=== PATIENT | female | born 1980 | race African-American/Black ===

== ENCOUNTER 2016-11-17 13:21 | Emergency (ER) | payer SELFPAY ==
[2016-11-17 16:55] VITALS: BP 101/59
[2016-11-17] MEDS ORDERED: Ibuprofen TAB* 600 MG PO ONE (17:20)
--- NOTE | 2016-11-17 18:05 | RAD ---
Indication: Right lower neck pain CT of the cervical spine was obtained in the axial plane. Sagittal and coronal constructed images were obtained. The skull base demonstrates no evidence of fracture. Mastoid air cells are well aerated. The C1 ring is intact. The vertebral bodies appear normal in height. The atlantoaxial joint is otherwise unremarkable. No evidence of fracture of the cervical spine is noted. No evidence of central or foraminal stenosis is noted. Spinal canal appears to be grossly intact. Paraspinous processes are unremarkable. There is some straightening of the normal lordosis. IMPRESSION: NO FRACTURE OF THE CERVICAL SPINE IS PRESENT.
--- NOTE | 2016-11-17 18:06 | RAD ---
Indication: Right shoulder injury. 3 views of the right shoulder demonstrates no fracture. No other bone or joint abnormality is identified. IMPRESSION: No fracture of the right shoulder is present.
--- NOTE | 2016-11-17 19:51 | UC ---
Mario Metzger SooYoung, scribed for Eduardo Hart MD on 11/17/16 at 1722 . Upper Extremity HPI - HPI Summary HPI Summary: A 36 y/o F presents to [facility] with R shoulder pain onset yesterday, with pain radiating from her neck down her shoulder. Pt was trying to move a pt at her workplace, and she noticed immediately that something felt wrong. Associated sx : mild numbness, RUE weakness, mild R wrist pain. Denies R hand pain. She went to work today, and was mostly using her LUE, but they sent her to [facility] to be evaluated when they found out she hurt her arm. 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 - History of Current Complaint Chief Complaint: UCUpperExtremity Stated Complaint: RT ARM INJURY Time Seen by Provider: 11/17/16 17:13 Hx Obtained From: Patient Hx Last Menstrual Period: 10/28 Onset/Duration: Sudden Onset, Lasting Days - yesterday, Still Present Severity Initially: Moderate Severity Currently: Moderate Pain Intensity: 9 Pain Scale Used: 0-10 Numeric Location Of Pain: Is Discrete @ - RUE/shoulder Character: Sharp Aggravating Factor(s): Movement Alleviating Factor(s): OTC Meds Associated Signs And Symptoms: Positive: Weakness, Numbness/Tingling Related History: Occupational Injury - Allergies/Home Medications Allergies/Adverse Reactions: Allergies Allergy/AdvReac Type Severity Reaction Status Date / Time ENVIRONMENTAL/SEASONAL Allergy STUFFINESS, Uncoded 06/08/15 19:38 HAYFEVER SNEEZING Home Medications: Home Medications Ibuprofen [Advil] 400 mg PO 11/17/16 [History] PMH/Surg Hx/FS Hx/Imm Hx Previously Healthy: No - ANEMIA Respiratory History: Asthma - Surgical History Surgical History: Yes Surgery Procedure, Year, and Place: umbilical hernia repair 04/2013 - Family History Known Family History: Positive: Other Family History: pos: anaesthesia reaction - sister - Social History Occupation: Employed Full-time Lives: With Family Alcohol Use: None Substance Use Type: None Smoking Status (MU): Never Smoked Tobacco - Immunization History Most Recent Influenza Vaccination: 03/31/15 Most Recent Tetanus Shot: 03/31/15 Most Recent Pneumonia Vaccination: none Review of Systems Constitutional: Negative Musculoskeletal: Arthralgia - R shoulder; mild R wrist, Decreased ROM - R shoulder, Other: - neg: R hand pain Neurological: Weakness - RUE, Numbness - RUE All Other Systems Reviewed And Are Negative: Yes Physical Exam Triage Information Reviewed: Yes Appearance: Well-Appearing, No Pain Distress Vital Signs: Initial Vital Signs Temp 98.5 F 11/17/16 16:50 Pulse 46 11/17/16 16:50 Resp 18 11/17/16 16:50 BP 101/59 11/17/16 16:50 Pulse Ox 99 11/17/16 16:50 Vital Signs Reviewed: Yes Eye Exam: Normal - EOMI, MIMA ENT Exam: Normal Neck: Positive: Supple, Nontender, Other: - GOOD ROM OF NECK Respiratory: Positive: Lungs clear, Normal breath sounds Cardiovascular: Positive: RRR Abdomen Description: Positive: Nontender, Soft Musculoskeletal Exam: Other - Mild to moderate pain with movement of R shoulder , decreased ROM of R shoulder joint, no sensation deficit, elbow and wrist are nontender and nml appearing Neurological Exam: Normal - A&Ox3 Psychological Exam: Normal - Affect/Mood Appropriate Skin Exam: Normal - warm, dry, color reflects adequate perfusion Diagnostics - Radiology c-SPINE CT Xray Interpretation: No Acute Changes - IMPRESSION: NO FRACTURE OF THE CERVICAL SPINE IS PRESENT. Radiology Interpretation Completed By: Radiologist SHOULDER Xray Interpretation: No Acute Changes - IMPRESSION: No fracture of the right shoulder is present. 1 of 1 Radiology Interpretation Completed By: Radiologist Re-Evaluation - Re-Evaluation 1 Re-Evaluation Time: 18:21 Change: Unchanged Comment: Discussing imaging results with pt. Upper Extremity Course/Dx - Course Course Of Treatment: Pt medications reviewed this visit. Normal BP reading and no follow-up instructions required. INJURY OCCURRED AT WORK 11/16/16. NO USE OF RIGHT ARM UNTIL CLEARED BY MEDICAL PROVIDER. - Differential Dx/Diagnosis Provider Diagnoses: CERVICAL STRAIN WITH RIGHT SIDED RADICULOPATHY AND RIGHT SHOULDER STRAIN Discharge - Discharge Plan Condition: Stable Disposition: HOME Prescriptions: traMADol TAB* [Ultram*] 50 mg PO Q6HR PRN #20 tab MDD 4 PRN Reason: Pain Patient Education Materials: Shoulder Sprain (ED), Cervical Radiculopathy (ED) , Acute Neck Pain (ED) Forms: *Work Release Referrals: Kenny Cheng MD [Primary Care Provider] - Additional Instructions: FOLLOW UP WITH YOUR DOCTOR. GET RECHECKED FOR ANY WORSENING OF YOUR CONDITION; WEAKNESS, NUMBNESS, PAIN OR QUESTIONS OR CONCERNS. The documentation as recorded by the Mario hale SooYoung accurately reflects the service I personally performed and the decisions made by me, Eduardo Hart MD.
== END 2016-11-17 18:33 | disposition home or self-care (01) ==
LOC: UCEAST 13:21
DX: S16.1XXA Strain of muscle, fascia and tendon at neck level, initial encounter (principal); M54.12 Radiculopathy, cervical region; S43.401A Unspecified sprain of right shoulder joint, initial encounter; X50.0XXA Overexertion from strenuous movement or load, initial encounter; Y93.F9 Activity, other caregiving; Y92.9 Unspecified place or not applicable; Y99.0 Civilian activity done for income or pay
CPT/HCPCS: 72125; 99213; A9270-GY; G0463

== ENCOUNTER → 2017-01-20 13:41 | Emergency (ER) | payer SELFPAY ==
[2017-01-20 15:37] VITALS: BP 104/63
--- NOTE | 2017-01-20 17:19 | ED ---
Willard Metzger Nikita, scribed for DonnyJosesito MD on 01/20/17 at 1452 . Abdominal Pain/Female - HPI Summary HPI Summary: Ms. Hines presented C/O mid abdominal pain for a few days. No N/V/D. She has a history of abdominal wall hernia but it normally doesn't bother her. - History of Current Complaint Chief Complaint: EDAbdPain Stated Complaint: PAIN ABOVE NAVEL Time Seen by Provider: 01/20/17 14:41 Hx Obtained From: Patient Hx Last Menstrual Period: 10/28 Onset/Duration: Sudden Onset - after 1 year ago, Lasting Weeks - since 1 year ago, worsened since 1 week ago, Worse Since - 1 week ago Timing: Constant Severity Initially: Severe Severity Currently: Severe Pain Intensity: 10 Pain Scale Used: 0-10 Numeric Location: Umbilical Radiates: No Character: Sharp, Cramping Aggravating Factor(s): Nothing Alleviating Factor(s): Medications - Ibuprofen upon arrival to ED Associated Signs and Symptoms: Positive: Other: - Protruding umbilical region. Allergies/Adverse Reactions: Allergies Allergy/AdvReac Type Severity Reaction Status Date / Time ENVIRONMENTAL/SEASONAL Allergy STUFFINESS, Uncoded 01/20/17 14:02 HAYFEVER SNEEZING PMH/Surg Hx/FS Hx/Imm Hx Endocrine/Hematology History: Reports: Hx Anemia Denies: Hx Diabetes, Hx Thyroid Disease Cardiovascular History: Denies: Hx Hypertension Respiratory History: Reports: Hx Asthma - rescue inhaler Denies: Hx Chronic Obstructive Pulmonary Disease (COPD) GI History: Denies: Hx Ulcer Sensory History: Denies: Hx Contacts or Glasses, Hx Hearing Aid Opthamlomology History: Denies: Hx Contacts or Glasses - Surgical History Surgery Procedure, Year, and Place: umbilical hernia repair 04/2013 Infectious Disease History: No Infectious Disease History: Denies: Hx Clostridium Difficile, Hx Hepatitis, Hx Human Immunodeficiency Virus (HIV), Hx of Known/Suspected MRSA, Hx Shingles, Hx Tuberculosis, Hx Known/ Suspected VRE, Hx Known/Suspected VRSA, History Other Infectious Disease, Traveled Outside the [place] in Last 30 Days - Family History Known Family History: Negative: Cardiac Disease, Hypertension, Diabetes Family History: pos: anaesthesia reaction - sister - Social History Alcohol Use: None Substance Use Type: Reports: None Smoking Status (MU): Never Smoked Tobacco Review of Systems Negative: Fever Positive: Abdominal Pain - Umbilical region is protruding, has sharp, cramping pain All Other Systems Reviewed And Are Negative: Yes Physical Exam Triage Information Reviewed: Yes Vital Signs On Initial Exam: Initial Vitals BP 116/67 01/20/17 13:55 Vital Signs Reviewed: Yes Appearance: Positive: Well-Appearing, No Pain Distress Skin: Positive: Warm, Skin Color Reflects Adequate Perfusion, Dry Head/Face: Positive: Normal Head/Face Inspection Eyes: Positive: Normal ENT: Positive: Normal ENT inspection Neck: Positive: Supple, Nontender Respiratory/Lung Sounds: Positive: Clear to Auscultation, Breath Sounds Present Cardiovascular: Positive: RRR Abdomen Description: Positive: Soft, Hernia @ - supra umbilical, reduced easily Bowel Sounds: Positive: Present Musculoskeletal: Positive: Normal Neurological: Positive: Normal, Sensory/Motor Intact, Alert, Oriented to Person Place, Time, CN Intact II-III Psychiatric: Positive: Affect/Mood Appropriate - Meigs Coma Scale Coma Scale Total: 15 Diagnostics - Vital Signs Vital Signs Temp Pulse Resp BP Pulse Ox 01/20/17 13:58 99.0 F 76 14 /67 98 01/20/17 13:57 76 98 01/20/17 13:55 - Laboratory Lab Statement: Any lab studies that have been ordered have been reviewed, and results considered in the medical decision making process. Re-Evaluation - Re-Evaluation First Eval Re-Evaluation Time: 15:18 Comment: Discussed with pt about discharge plan. Pt agrees to follow up with Dr. Baum. Abdominal Pain Fem Course/Dx - Course Course Of Treatment: Ms. Hines presented with an abdominal wall hernia whigh reduced easily and gave her relief of her pain. She will F/U with Dr. Baum. - Diagnoses Provider Diagnoses: Hernia - Provider Notifications Discussed Care Of Patient With: Eugenia Feldman Time Discussed With Above Provider: 15:14 Instructed by Provider To: Other - Discussed with Dr. Feldman who agrees that they follow up with the pt. Discharge - Discharge Plan Condition: Stable Disposition: HOME Patient Education Materials: Umbilical Hernia (ED) Referrals: Spike Baum MD [Medical Doctor] - () The documentation as recorded by the Willard hale Nikita accurately reflects the service I personally performed and the decisions made by , Josesito Hines MD.
== END | disposition home or self-care (01) ==
LOC: ED 13:41
DX: K46.9 Unspecified abdominal hernia without obstruction or gangrene (principal); R10.9 Unspecified abdominal pain
CPT/HCPCS: 99282

== ENCOUNTER 2018-06-20 09:30 | Emergency (ER) | payer MEDICAID, OTHER ==
--- NOTE | 2018-06-20 10:58 | UC ---
Lower Extremity/Ankle HPI - HPI Summary HPI Summary: 38 you with left ankle, foot injury fall from stairs and twisting ankle. Pain over the foot and with ambulation. Occurred last night. VSS. - History of Current Complaint Chief Complaint: UCLowerExtremity Stated Complaint: FOOT INJURY Time Seen by Provider: 06/20/18 10:48 Hx Last Menstrual Period: 06/14/18 Pain Intensity: 10 - Allergies/Home Medications Allergies/Adverse Reactions: Allergies Allergy/AdvReac Type Severity Reaction Status Date / Time ENVIRONMENTAL/SEASONAL Allergy STUFFINESS, Uncoded 06/20/18 09:44 HAYFEVER SNEEZING Home Medications: Home Medications NK [No Home Medications Reported] 06/20/18 [History Confirmed 06/20/18] PMH/Surg Hx/FS Hx/Imm Hx - Additional Past Medical History Additional PMH: hx of hernia repair. 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 Alcohol Use: None Substance Use Type: None Smoking Status (MU): Never Smoked Tobacco - Immunization History Most Recent Influenza Vaccination: 03/31/15 Most Recent Tetanus Shot: 03/31/15 Most Recent Pneumonia Vaccination: none Review of Systems All Other Systems Reviewed And Are Negative: Yes Constitutional: Positive: Negative Skin: Positive: Negative Eyes: Positive: Negative ENT: Positive: Negative Respiratory: Positive: Negative Cardiovascular: Positive: Negative Gastrointestinal: Positive: Negative Genitourinary: Positive: Negative Motor: Positive: Negative Neurovascular: Positive: Negative Musculoskeletal: Positive: Edema, Other: - pain over dorsum of left foot Neurological: Positive: Negative Psychological: Positive: Negative Physical Exam - Summary Physical Exam Summary: Appearance: The patient is well-appearing, is in no pain or distress, and is well-nourished. Eyes: Conjunctiva are clear. Pupils are equal and reactive to light and accommodation. Extra ocular muscle movement is intact. ENT: The hearing is grossly normal, the pharynx is normal, and the TMs are normal. There is no muffled or hoarse voice. No stridor. Neck: The neck is supple and there is no lymphadenopathy. Respiratory: The chest is nontender to palpation and without crepitus. The lungs are clear, there are normal breath sounds, and there is no respiratory distress. No wheezes, rales or rhonchi. Cardiovascular: Heart sounds reveal a regular rate and rhythm. There are no clicks, rubs or murmurs. There are no carotid bruits or thrills. Circulation is grossly intact. Abdomen: The abdomen is soft and nontender. There is no organomegaly. Bowel sounds are present and within normal limits. No point tenderness at McBurneys point. Musculoskeletal: Strength is intact. The patient moves all extremities. Pain over the dorsum of the left foot and inferior at the lateral malleous. Achilles appears intact. No 5th MT discomfort. Neurological: The patient is alert. Motor and sensory are examination grossly intact. Speech is normal. Psychological: The patient displays age appropriate behavior Skin: Negative for rashes. Triage Information Reviewed: Yes Vital Signs: Initial Vital Signs Temp 98.2 F 06/20/18 09:41 Pulse 83 06/20/18 09:41 Resp 16 06/20/18 09:41 BP 105/70 06/20/18 09:41 Pulse Ox 100 06/20/18 09:41 Lower Extremity Course/Dx - Course Course Of Treatment: 38-year-old female who suffered an inversion injury to the left foot and ankle last night. She cannot bear weight. X-ray shows a avulsion fracture on the dorsum of the navicular. Examination also shows tenderness over the ligaments at the lateral malleolus of the left ankle. My diagnosis is an evulsion fracture of the left navicular bone of the foot, and first degree ankle sprain of the left foot. Patient is referred to Dr. Garcias's office and will be seen tomorrow at 3:30. She will be given an cooper and crutches. - Differential Dx/Diagnosis Differential Diagnosis/HQI/PQRI: Fracture (Closed), Sprain Provider Diagnosis: Navicular fracture, foot, Left ankle sprain Discharge - Sign-Out/Discharge Documenting (check all that apply): Patient Departure All imaging exams completed and their final reports reviewed: Yes - Discharge Plan Condition: Stable Disposition: HOME Patient Education Materials: Ankle Sprain (DC), Foot Fracture in Adults (ED) Forms: *Work Release Referrals: Kenny Cheng MD [Primary Care Provider] - Additional Instructions: WE DISCUSSED: PLEASE SEEK CARE AT THE EMERGENCY DEPARTMENT IF SYMPTOMS WORSEN OR IF NEW SYMPTOMS DEVELOP. FOLLOW UP WITH YOUR PRIMARY CARE PHYSICIAN IF CONDITION CONTINUES BEYOND 3 DAYS WITHOUT IMPROVEMENT. YOUR DIAGNOSIS IS: small bone fracture (navicular) of your left foot; also ankle sprain. YOUR PRESCRIPTION RECOMMENDATION IS: see below; ibuprofen and acetaminophen OTHER INSTRUCTIONS: use cooper and crutches; elevate; ice. Be seen tomorrow at 3 [address] Painting. Work note:off until June 24, 2018. For pain: Ibuprofen (Motrin and other brand names) 400-600mg PLUS acetaminophen (Tylenol and other brand names) 500mg - 1000mg every 8 hours. Maximum is 3 doses a day. If this dosage is required for more than 5 days, you should re-check with your doctor. The combination of these two over-the- counter medications can be more effective than each one taken alone. Please check with the pharmacist if you have questions about your allergies to these medications. To help you sleep: If you feel as if you want to calm down and get sleepy, over the counter diphenhydramine (Benadryl and other brand names), 25 mg up to every 8 hours may be useful. Please check with the pharmacist if you have questions about your allergies to these medications. - Billing Disposition and Condition Condition: STABLE Disposition: Home
[2018-06-20] MEDS ORDERED: Ibuprofen TAB* 600 MG PO ONE (11:17)
[2018-06-20 12:08] VITALS: BP 97/64
== END 2018-06-20 12:06 | disposition home or self-care (01) ==
LOC: UCEAST 09:30
DX: S92.252A Displaced fracture of navicular [scaphoid] of left foot, initial encounter for closed fracture (principal); S93.492A Sprain of other ligament of left ankle, initial encounter; Z91.09 Other allergy status, other than to drugs and biological substances; W10.9XXA Fall (on) (from) unspecified stairs and steps, initial encounter; Y92.9 Unspecified place or not applicable
CPT/HCPCS: 99213; A9270-GY; G0463

== ENCOUNTER 2019-06-29 14:38 | Emergency (ER) | payer OTHER ==
--- OUTSIDE RECORDS SUMMARY | 2019-06-29 14:44 | XMS REPORT | Continuity of Care Document ---
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 Onset: 04/05/2011 Hyperlipidemia Kenny Cheng M.D. Onset: 11/30/2010 Social History Type Date Description Comments Sex Unknown Tobacco Use Start: Unknown Never Smoked Cigarettes ETOH Use Denies alcohol use Tobacco Use Start: Unknown Patient has never smoked Smoking Status Reviewed: 06/25/19 Patient has never smoked Exercise Type/Frequency Exercises regularly Allergies, Adverse Reactions, Alerts Description No Known Drug Allergies Medications Active Medications SIG Qnty Indications Ordering Provider Date Oseltamivir Phosphate take 1 cap by 14caps R05 Tina Mittal, 06/25/2019 mouth twice MD 75mg Capsules daily for 7 days Gummi Bear 1 po qd Unknown Multivitamin/Mineral Chewtabs Alison Allergy 1 by mouth Unknown 180mg every day Tablets History Medications Oseltamivir Phosphate take 1 cap by 7caps R05 Tina Mittal, 06/05/2019 - mouth daily for MD 06/11/2019 75mg Capsules 7 days Immunizations CPT Code Status Date Vaccine Lot # [id number] Given 04/05/2011 Influenza Virus 3Yrs & Over [id number] Vital Signs Date Vital Result Comment 06/25/2019 2:56pm Height 65 inches 5'5" Weight 135.50 lb Heart Rate 74 /min BP Systolic 100 mmHg BP Diastolic 64 mmHg Body Temperature 99.3 F O2 % BldC Oximetry 98 % BMI (Body Mass Index) 22.5 kg/m2 06/05/2019 9:53am Height 65 inches 5'5" Weight 130.00 lb Heart Rate 88 /min BP Systolic Sitting 102 mmHg BP Diastolic Sitting 61 mmHg Body Temperature 99.4 F O2 % BldC Oximetry 99 % BMI (Body Mass Index) 21.6 kg/m2 Results Test Acquired Date Facility Test Result H/L Range Note CBC No Diff 06/05/2019 [facility] White Blood 3.9 10^3/uL Normal 3.5-10.8 [address] [facility] [place] [address] [phone] Red Blood Count 4.14 10^6/uL Normal 3.70-4.87 Hemoglobin 11.1 g/dL Low 12.0-16.0 Hematocrit 33 % Low 35-47 Mean Corpuscular Volume 80 fL Normal 80-97 Mean Corpuscular Hemoglobin 27 pg Normal 27-31 Mean Corpuscular HGB Conc 34 g/dL Normal 31-36 Red Cell Distribution Width 15 % Normal 10-15 Platelet Count 195 10^3/uL Normal 150-450 Mean Platelet Volume 9.3 fL Normal 7.4-10.4 Laboratory test 06/05/2019 [facility] Ferritin 5.5 ng/mL Low 11-307 finding [address] [place] [address] [phone] Iron & Iron Binding 06/05/2019 [facility] Iron 44 g/dL Low 50-212 [address]acity [address] [place] [address] [phone] Unsaturated Iron Binding < 433 g/dL Total Iron Binding Capacity 448 g/dL Normal 250-450 Transferrin <pending> % Iron Saturation 10 % Low 15-55 Vitamin B12 06/05/2019 [facility] Vitamin B12 353 pg/mL Normal 180-914 [address] [place] [address] [phone] Folic Acid (Folate) 11.76 ng/mL >3.99 Laboratory test 06/05/2019 [facility] Transferrin 320 mg/dL Normal 203-362 finding [address] [place] [address] [phone] Basic Metabolic 06/05/2019 [facility] Sodium 135 mmol/L Normal 135-145 Panel [address] [place] [address] [phone] Potassium 4.8 mmol/L Normal 3.5-5.0 Chloride 103 mmol/L Normal 101-111 Co2 Carbon Dioxide 27 mmol/L Normal 22-32 Anion Gap 5 mmol/L Normal 2-11 Glucose 70 mg/dL Normal 70-100 Blood Urea Nitrogen 19 mg/dL Normal 6-24 Creatinine 0.65 mg/dL Normal 0.51-0.95 BUN/Creatinine Ratio 29.2 High 8-20 Calcium 9.3 mg/dL Normal 8.6-10.3 Egfr Non- 102.6 >60 Egfr 124.1 >60 2 Influenza A & B 06/05/2019 [facility] Flu AB Disclaimer (SEE NOTE) 3 Request [address] [place] [address] [phone] Influenza A Molecular NEGATIVE Negative Influenza B Molecular NEGATIVE Negative 4 1 Normal Range 180 to 914 Indeterminate Range 145 to 180 Deficient Range <145 2 Because ethnic data is not always readily available, this report includes an eGFR for both -Americans and non- Americans. The National Kidney Disease Education Program (NKDEP) does not endorse the use of the MDRD equation for patients that are not between the ages of 18 and 70, are , have extremes of body size, muscle mass, or nutritional status, or are non- or non-. According to the National Kidney Foundation, irrespective of diagnosis, the stage of the disease is based on the level of kidney function: Stage Description GFR(mL/min/1.73 m(2)) 1 Kidney damage with normal or decreased GFR 90 2 Kidney damage with mild decrease in GFR 60-89 3 Moderate decrease in GFR 30-59 4 Severe decrease in GFR 15-29 5 Kidney failure <15 (or dialysis) 3 Suboptimal collection technique may reduce sensitivity of test. Refer to the [facility] Test Catalog for collection information: [email or web address] As with all diagnostic procedures, the laboratory results obtained should be used in conjunction with other clinical information available to the physician, including confirmation by another method, as applicable. 4 Manager Pipeline: [id number] Procedures Description No Information Available Medical Devices Description No Information Available Encounters Type Date Location Provider Dx Diagnosis Office Visit 06/05/2019 10:00a [facility] Tina Mittal MD R05 Cough - Ccmob K43.9 Ventral hernia without obstruction or gangrene R55 Syncope and collapse D64.9 Anemia, unspecified J30.2 Other seasonal allergic rhinitis Office Visit 05/23/2019 Surgical Neel Wilson, M62.08 Separation of muscle 10:15a [facility] (nontraumatic), [facility] other site R22.42 Localized swelling, mass and lump, left lower limb Assessments Date Code Description Provider 06/25/2019 R05 Ramiro Mittal MD 06/25/2019 R06.02 Shortness of breath Tina Mittal MD 06/05/2019 R05 Cough Tina Mittal MD 06/05/2019 K43.9 Ventral hernia without obstruction or Tina Mittal MD gangrene 06/05/2019 R55 Syncope and collapse Tina Mittal MD 06/05/2019 D64.9 Anemia, unspecified Tina Mittal MD 06/05/2019 J30.2 Other seasonal allergic rhinitis Tina Mittal MD 05/23/2019 M62.08 Separation of muscle (nontraumatic), other Neel Wilson MD, FACS site 05/23/2019 R22.42 Localized swelling, mass and lump, left Neel Wilson MD, FACS lower limb Plan of Treatment Future Appointment(s):07/08/2019 10:00 am - Tina Mittal MD at [facility] - [facility]06/25/2019 - Tina Mittal MDR05 CoughNew Medication: Oseltamivir Phosphate 75 mg - take 1 cap by mouth twice daily for 7 daysNew Labs :Influenza A & B Request, Ordered: 06/25/19Comments:Likely that this is due to a viral illness.No need for antibiotics at this time.Continue to stay well hydrated with plenty of fluids.Eat as tolerated.Motrin/Tylenol for fever control.Call office for continued fever or worsening [id number] Shortness of breath Functional Status Description No Information Available Mental Status Description No Information Available Referrals Refer to Reason for Referral Status Appt Date Ayan Stewart MD Received Complete 06/18/2019 [address] [place] [address] [place] [address] [phone]
--- OUTSIDE RECORDS SUMMARY | 2019-06-29 14:44 | XMS REPORT | Continuity of Care Document ---
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 06/18/2019 80mcg/Act nostril every MD Terry Aerosol day Xyzal 1 tab by mouth 30tabs J30.1 Bryceophmert A. 06/18/2019 5mg Tablets every day as MD Terry needed Multivitamin Adult Unknown Tablets Immunizations Description No Information Available Vital Signs Date Vital Result Comment 06/18/2019 4:00pm BP Systolic 103 mmHg BP Diastolic 66 mmHg Height 66 inches 5'6" Weight 130.00 lb BMI (Body Mass Index) 21.0 kg/m2 Heart Rate 75 /min Respiratory Rate 16 /min O2 % BldC Oximetry 99 % Results Test Acquired Date Facility Test Result H/L Range Note Laboratory test 06/18/2019 [facility] Total <pending> finding [address] [place] [address] [phone] Procedures Date Code Description Status 06/18/2019 78976 Allergy Tests Percutaneous W/ Allergenic Extracts Completed Medical Devices Description No Information Available Encounters Type Date Location Provider Dx Diagnosis Office Visit 06/18/2019 [place] Ayna Stewart, J30.1 Allergic rhinitis 4:00p MD due to pollen J30.89 Other allergic rhinitis Assessments Date Code Description Provider 06/18/2019 J30.1 Allergic rhinitis due to pollen Ayan Stewart MD 06/18/2019 J30.89 Other allergic rhinitis Ayan Stewart MD Plan of Treatment Future Appointment(s):08/01/2019 2:00 pm - Tere Chandler NP at [place] Functional Status Description No Information Available Mental Status Description No Information Available Referrals Description No Information Available
--- OUTSIDE RECORDS SUMMARY | 2019-06-29 14:44 | XMS REPORT | Continuity of Care Document ---
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 06/18/2019 5mg Tablets every day as [...] Total <pending> finding [address] [place] [address] [phone] Order 06/18/2019 [facility] Skin Test <pending> Seasonal and Environmental Procedures Date Code Description Status 06/18/2019 17286 Allergy Tests Percutaneous W/ Allergenic Extracts Completed Medical Devices Description No Information Available Encounters Description No Information Available Assessments Date Code Description Provider 06/18/2019 J30.1 Allergic rhinitis due to pollen Ayan Stewart MD 06/18/2019 J30.89 Other allergic rhinitis Ayan Stewart MD Plan of Treatment 06/18/2019 - Ayan Stewart MDJ30.1 Allergic rhinitis due to pollenNew Medication:Qnasl 80 mcg/Act - 2 puffs each nostril every dayXyzal 5 mg - 1 tab by mouth every day as vubqhjV22.89 Other allergic rhinitis Functional Status Description No Information Available Mental Status Description No Information Available Referrals Description No Information Available
--- OUTSIDE RECORDS SUMMARY | 2019-06-29 14:44 | XMS REPORT | Continuity of Care Document ---
:1980 External Reference #:[id number] Author Name Tina Mittal MD (transmitted by agent of provider Jeri Lujan) Address [address] [facility] [facility] [address] , [place] [address] Care Team Providers Name Role Phone Kenny Cheng MD - Internal Care Team Information Manager [employer] Medicine Spike Baum MD - Surgery Care Team Information Manager [employer] [phone] Salvador Diamond MD - Obstetrics Care Team Information Manager [employer] [phone] Tina Mittal MD - Internal Care Team Information Manager [employer] [phone] Medicine Problems Active Problems Provider Date Hernia of abdominal wall Kenny Cheng M.D. Onset: 04/05/2011 Hyperlipidemia Kenny Cheng M.D. Onset: 11/30/2010 Social History Type Date Description Comments Sex Unknown Tobacco Use Start: Unknown Never Smoked Cigarettes ETOH Use Denies alcohol use Tobacco Use Start: Unknown Patient has never smoked Smoking Status Reviewed: 06/05/19 Patient has never smoked Exercise Type/Frequency Exercises regularly Allergies, Adverse Reactions, Alerts Description No Known Drug Allergies Medications Active Medications SIG Qnty Indications Ordering Provider Date Gummi Bear 1 po qd Unknown Multivitamin/Mineral Chewtabs Alison Allergy 1 by mouth every Unknown 180mg day Tablets Immunizations CPT Code Status Date Vaccine Lot # [id number] Given 04/05/2011 Influenza Virus 3Yrs & Over [id number] Vital Signs Date Vital Result Comment 06/05/2019 9:53am Height 65 inches 5'5" Weight 130.00 lb Heart Rate 88 /min BP Systolic Sitting 102 mmHg BP Diastolic Sitting 61 mmHg Body Temperature 99.4 F O2 % BldC Oximetry 99 % BMI (Body Mass Index) 21.6 kg/m2 05/23/2019 10:09am Height 65 inches 5'5" Weight 126.00 lb Heart Rate 76 /min BP Systolic 100 mmHg BP Diastolic 66 mmHg Respiratory Rate 16 /min Body Temperature 98.2 F BMI (Body Mass Index) 21.0 kg/m2 Results Description No Information Available Procedures Description No Information Available Medical Devices Description No Information Available Encounters Type Date Location Provider Dx Diagnosis Office Visit 05/23/2019 Surgical Neel Wilson, M62.08 Separation of 10:15a [facility] PANCHITO PEDERSON muscle (nontraumatic), other site R22.42 Localized swelling, mass and lump, left lower limb Assessments Date Code Description Provider 06/05/2019 R05 Cough Tina Mittal MD 06/05/2019 K43.9 Ventral hernia without obstruction or Tina Mittal MD gangrene 06/05/2019 R22.9 Localized swelling, mass and lump, Tina Mittal MD unspecified 06/05/2019 R55 Syncope and collapse Tina Mittal MD 06/05/2019 Z12.4 Encounter for screening for malignant Tina Mittal MD neoplasm of cervix 05/23/2019 M62.08 Separation of muscle (nontraumatic), other Neel Wilson MD, FACS site 05/23/2019 R22.42 Localized swelling, mass and lump, left Neel Wilson MD, FACS lower limb Plan of Treatment Future Appointment(s):07/08/2019 9:30 am - [facility] am - Neel Wilson MD, [facility] at [facility]06/05/2019 - Tina Mittal MDR05 LubmhQ83.9 Ventral hernia without obstruction or zlilrnmcQ86.9 Localized swelling, mass and lump, rcbpqesparcD00 Syncope and nptkeqffB14.4 Encounter for screening for malignant neoplasm of cervix Functional Status Description No Information Available Mental Status Description No Information Available Referrals Description No Information Available
--- OUTSIDE RECORDS SUMMARY | 2019-06-29 14:44 | XMS REPORT | Continuity of Care Document ---
:1980 External Reference #:[id number] Author Name Neel Wilson MD, FACS (transmitted by agent of provider Vinny Poole) Address [address] [place] [address] [address] [place] [address] Care Team Providers Name Role Phone Kenny Cheng MD - Internal Care Team Information Art Dealer [phone] Medicine Spike Baum MD - Surgery Care Team Information Art Dealer [phone] Salvador Diamond MD - Obstetrics Care Team Information Art Dealer [phone] Reena Angela M.D. 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 Onset: 04/05/2011 Hyperlipidemia Kenny Cheng M.D. Onset: 11/30/2010 Social History Type Date Description Comments Sex Unknown Tobacco Use Start: Unknown Never Smoked Cigarettes ETOH Use Denies alcohol use Tobacco Use Start: Unknown Patient has never smoked Smoking Status Reviewed: 05/23/19 Patient has never smoked Exercise Type/Frequency Exercises regularly Allergies, Adverse Reactions, Alerts Description No Known Drug Allergies Medications Active Medications SIG Qnty Indications Ordering Provider Date Gummi Bear 1 po qd Unknown Multivitamin/Mineral Chewtabs ALL Day Allergy 1 by mouth every Unknown 10mg day as needed Capsules Immunizations CPT Code Status Date Vaccine Lot # [id number] Given 04/05/2011 Influenza Virus 3Yrs & Over [id number] Vital Signs Date Vital Result Comment 05/23/2019 10:09am Height 65 inches 5'5" Weight 126.00 lb Heart Rate 76 /min BP Systolic 100 mmHg BP Diastolic 66 mmHg Respiratory Rate 16 /min Body Temperature 98.2 F BMI (Body Mass Index) 21.0 kg/m2 09/16/2013 12:52pm Height 65 inches 5'5" Weight 121.00 lb Heart Rate 90 /min BP Systolic Sitting 118 mmHg BP Diastolic Sitting 64 mmHg BMI (Body Mass Index) 20.1 kg/m2 Results Description No Information Available Procedures Description No Information Available Medical Devices Description No Information Available Encounters Description No Information Available Assessments Date Code Description Provider 05/23/2019 M62.08 Separation of muscle (nontraumatic), other Neel Wilson MD, FACS site 05/23/2019 R22.42 Localized swelling, mass and lump, left Neel Wilson MD, FACS lower limb Plan of Treatment 05/23/2019 - Neel Wilson MD, FACSM62.08 Separation of muscle (nontraumatic), other siteRecommendations:Consider surgical maftajW51.42 Localized swelling, mass and lump, left lower limbFollow up:after testing is completed Functional Status Description No Information Available Mental Status Description No Information Available Referrals Description No Information Available
--- OUTSIDE RECORDS SUMMARY | 2019-06-29 14:44 | XMS REPORT | Continuity of Care Document ---
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 Medicine Problems Active Problems Provider Date Hernia [...] Date Oseltamivir Phosphate take 1 cap by 7caps R05 Tina Mittal, 06/05/2019 mouth daily for MD 75mg Capsules 7 days Gummi Bear 1 po qd Unknown Multivitamin/Mineral Chewtabs Alison Allergy 1 by mouth every Unknown 180mg day Tablets Immunizations CPT Code Status Date Vaccine Lot # [id number] Given 04/05/2011 Influenza Virus 3Yrs & Over [id number] Vital Signs Date Vital Result Comment 06/05/2019 [...] BMI (Body Mass Index) 21.0 kg/m2 Results Test Acquired Date Facility Test Result H/L Range Note Laboratory test 06/05/2019 [facility] Influenza A & B <pending> finding [address] Request [place] [id number] [phone] Procedures Description No Information Available Medical Devices Description No Information Available Encounters Type Date Location Provider Dx Diagnosis Office Visit 05/23/2019 Surgical Neel Wilson M62.08 Separation of 10:15a [facility] PANCHITO PEDERSON muscle (nontraumatic), other site R22.42 Localized swelling, mass and lump, left lower limb Assessments Date Code Description Provider 06/05/2019 R05 Cough Tina Mitatl MD 06/05/2019 K43.9 Ventral hernia without obstruction or Tina Mittal MD gangrene 06/05/2019 R22.9 Localized swelling, mass and lump, Tina Mittal MD unspecified 06/05/2019 R55 Syncope and collapse Tina Mittal MD 06/05/2019 Z12.4 Encounter for screening for malignant Tina Mittal MD neoplasm of cervix 06/05/2019 D64.9 Anemia, unspecified Tina Mittal MD 06/05/2019 J30.2 Other seasonal allergic rhinitis Tina Mittal MD 05/23/2019 M62.08 Separation of muscle (nontraumatic), other Neel Wilsno MD, FACS site 05/23/2019 R22.42 Localized swelling, mass and lump, left Neel Wilson MD, FACS lower limb Plan of Treatment Future Appointment(s):07/08/2019 10:00 am - Tina Mittal MD at [facility] Internal Medicine - [facility]06/20/2019 10:00 am - Neel Wilson MD, FACS at [facility]06/05/2019 - Tina Mittal MDR05 CoughNew Medication: Oseltamivir Phosphate 75 mg - take 1 cap by mouth daily for 7 daysFollow up: Please make an appt for qfcufvJ55.9 Ventral hernia without obstruction or yxzgyiqhA20.9 Localized swelling, mass and lump, ffdwunjiwohR98 Syncope and bsztooumM29.4 Encounter for screening for malignant neoplasm of xmzyztR76.9 Anemia, pgsnnloymrfX66.2 Other seasonal allergic rhinitisReferral:Ayan Stewart MD, Allergy & Immunology Functional Status Description No Information Available Mental Status Description No Information Available Referrals Refer to Reason for Referral Status Appt Date Ayan Stewart MD Scheduled 06/18/[address] [place] [id number] [phone]
--- OUTSIDE RECORDS SUMMARY | 2019-06-29 14:44 | XMS REPORT | Continuity of Care Document ---
:1980 External Reference #:[id number] Author Name Tina Mittal MD (transmitted by agent of provider Jeri Lujan) Address [address] [facility] [address] [place] [address] Care Team Providers Name Role Phone Kenny Cheng MD - Internal Care Team Information Hotel Associate Medicine Spike Baum MD - Surgery Care Team Information Hotel Associate [phone] Salvador Diamond MD - Obstetrics Care Team Information Hotel Associate Tina Mittal MD - Internal Care Team Information Hotel Associate Medicine Problems Active Problems Provider Date Hernia [...] CPT Code Status Date Vaccine Lot # [id number] Given 04/05/2011 Influenza Virus 3Yrs & Over [id number] Vital Signs Date Vital Result Comment 06/05/2019 [...] Result H/L Range Note Laboratory test 06/05/2019 [facility] Influenza A & B <pending> finding [address] [place] [address] [phone] Procedures Description No Information Available Medical Devices Description No Information Available Encounters Type Date Location Provider Dx Diagnosis Office Visit 05/23/2019 Surgical Neel Wilson M62.08 Separation of 10:15a [facility] PANCHITO PEDERSON muscle (nontraumatic), other site [...] 10:00 am - Tina Mittal MD at [facility] Internal Medicine - [facility]06/20/2019 10:00 am - Neel Wilson MD, FACS at [facility]06/05/2019 - Tina Mittal MDR05 CoughNew Medication: Oseltamivir Phosphate 75 mg - take 1 cap by mouth daily for 7 daysFollow up: Please make an appt for bhnrkqA56.9 Ventral hernia without obstruction or ncbuhxqbF93.9 Localized swelling, mass and lump, olaowcvdvlmB00 Syncope and vlolrtetM50.4 Encounter for screening for malignant neoplasm of nhezacQ36.9 Anemia, lvzupoeuktbF51.2 Other seasonal allergic rhinitisReferral:Ayan Stewart MD, Allergy & Immunology Functional Status Description No Information Available Mental Status Description No Information Available Referrals Refer to Reason for Referral Status Appt Date Ayan Stewart MD Scheduled 06/18/[address] [place] [id number] [phone]
--- NOTE | 2019-06-29 15:38 | UC ---
Nausea/Vomiting/Diarrhea HPI - HPI Summary HPI Summary: 39-year-old female presents with 3 day history of nausea and vomiting. States she started with some flulike symptoms 5 or 6 days ago with nausea. Was seen by her primary care provider on 06/25/2019 and tested negative for flu. Reports over the last 3 days she has had multiple episodes of vomiting anytime she tries to eat. Last episode of vomiting was just prior to arrival but states was mainly dry heaves. States today she started with some epigastric "burning" , heartburn, and sore throat that she thinks is from the vomiting. No measured fever although she is complained of some chills. Last menstrual period was 2019. Denies chest pain, palpitations, shortness of breath, diarrhea, back or flank pain, dysuria, frequency, urgency, hematuria, or vaginal discharge. - History of Current Complaint Chief Complaint: UCGeneralIllness Stated Complaint: VOMITTING FOR DAYS Time Seen by Provider: 06/29/19 15:11 Hx Obtained From: Patient Hx Last Menstrual Period: 05/16/19 Pain Intensity: 3 - Allergies/Home Medications Allergies/Adverse Reactions: Allergies Allergy/AdvReac Type Severity Reaction Status Date / Time ENVIRONMENTAL/SEASONAL Allergy STUFFINESS, Uncoded 06/29/19 15:21 HAYFEVER SNEEZING PMH/Surg Hx/FS Hx/Imm Hx Previously Healthy: Yes - Surgical History Surgical History: Yes Surgery Procedure, Year, and Place: umbilical hernia repair 04/2013 - Family History Known Family History: Positive: Other Negative: Cardiac Disease, Hypertension, Diabetes Family History: pos: anaesthesia reaction - sister - Social History Alcohol Use: None Substance Use Type: None Smoking Status (MU): Never Smoked Tobacco - Immunization History Most Recent Influenza Vaccination: 03/31/15 Most Recent Tetanus Shot: 03/31/15 Most Recent Pneumonia Vaccination: none Review of Systems All Other Systems Reviewed And Are Negative: Yes Constitutional: Positive: Chills, Fatigue. Negative: Fever Eyes: Negative: Drainage, Eye Redness ENT: Positive: Sore Throat. Negative: Ear Ache, Nasal Discharge, Sinus Congestion, Sinus Pain/Tenderness Respiratory: Negative: Shortness Of Breath, Cough Cardiovascular: Negative: Palpitations, Chest Pain Gastrointestinal: Positive: Abdominal Pain, Vomiting, Nausea. Negative: Diarrhea Genitourinary: Negative: Dysuria, Hematuria, Frequency, Urgency, Vaginal/Penile Discharge Physical Exam - Summary Physical Exam Summary: GENERAL APPEARANCE: Well developed, well nourished, alert and cooperative, and appears to be in no acute distress. EYES: Conjunctiva clear. No drainage. EARS: External auditory canals and tympanic membranes clear, hearing grossly intact. NOSE: No nasal discharge. THROAT: Pharynx normal. No tonsilar inflammation, swelling, exudate, or lesions. Uvula midline. NECK: Neck supple, non-tender without lymphadenopathy. CARDIAC: Normal S1 and S2. No S3, S4 or murmurs. Rhythm is regular. There is no peripheral edema, cyanosis or pallor. Extremities are warm and well perfused. Capillary refill is less than 2 seconds. Peripheral pulses intact. LUNGS: Clear to auscultation without rales, rhonchi, wheezing or diminished breath sounds. ABDOMEN: Positive bowel sounds. Soft, nondistended, nontender. No guarding or rebound. No masses or hepatosplenomegally. No CVA tenderness. MUSKULOSKELETAL: ROM intact to all extremities. No joint erythema or tenderness. Normal muscular development. Normal gait. SKIN: Skin normal color, texture and turgor with no lesions or eruptions. Triage Information Reviewed: Yes Vital Signs: Initial Vital Signs Temp 99.3 F 06/29/19 15:17 Pulse 72 06/29/19 15:17 Resp 15 06/29/19 15:17 BP 112/71 06/29/19 15:17 Pulse Ox 99 06/29/19 15:17 Vital Signs Reviewed: Yes Naus/Vom/Diarrhea Course/Dx - Course Course Of Treatment: 39-year-old female presents with 3 day history of nausea and vomiting. States she started with some flulike symptoms 5 or 6 days ago with nausea. Was seen by her primary care provider on 06/25/2019 and tested negative for flu. Reports over the last 3 days she has had multiple episodes of vomiting anytime she tries to eat. Last episode of vomiting was just prior to arrival but states was mainly dry heaves. States today she started with some epigastric "burning" , heartburn, and sore throat that she thinks is from the vomiting. No measured fever although she is complained of some chills. Last menstrual period was 2019. Denies chest pain, palpitations, shortness of breath, diarrhea, back or flank pain, dysuria, frequency, urgency, hematuria, or vaginal discharge. Afebrile. Vital signs stable. Patient's exam was overall unremarkable. She was given a liter of IV fluid and metoclopramide 10 mg IV for the nausea. Point -of-care urinalysis showed trace leukocytes and 1+ ketones. Urine culture is pending. Urine was positive. Reviewed the results with the patient and we discussed that her nausea and vomiting was most likely related to her . Her nausea improved with the metoclopramide and she was able to tolerate oral fluids without any further episodes of vomiting. Recommending conservative treatment for nausea and vomiting in . She is to follow- up with her primary care provider in 3 days and establish with an OB as soon as possible. Anticipatory guidance and warning symptoms are reviewed with the patient. Verbalizes understanding and agrees with plan of care. - Differential Dx/Diagnosis Differential Diagnoses - Female: Pancreatitis, , Gall Bladder Disease, Peptic Ulcer Disease, Urinary Tract Infection, Esophagitis/Gastritis, Gastroenteritis (Viral), Gastroenteritis (Bacterial), Vomiting, Diarrhea Provider Diagnosis: Nausea and vomiting in Condition At Discharge: Stable Discharge ED - Sign-Out/Discharge Documenting (check all that apply): Patient Departure All imaging exams completed and their final reports reviewed: No Studies - Discharge Plan Condition: Stable Disposition: HOME Patient Education Materials: Nausea and Vomiting in (ED) Forms: *Work Release Referrals: Kristen John DO [Primary Care Provider] - Additional Instructions: The urine test performed in the clinic today was positive for ketones which is consistent with your reports of vomiting. There were also a trace amount of white blood cells which could suggest an urinary tract infection however since you are not having symptoms we will send a urine culture and treat if indicated. Your test was positive which would explain your nausea and vomiting. You should eat before, or as soon as, you feel hungry to avoid an empty stomach , which can aggravate nausea. A snack before getting out of bed in the morning and snacks during the night may be helpful (eg, crackers with peanut butter or cheese taken prior to getting up for nighttime bathroom trips). Meals and snacks should be eaten slowly and in small amounts every 1-2 hours to avoid an overly full stomach which can also aggravate nausea. You can also try consuming raghav-containing foods (eg, raghav lollipops, raghav tea, foods or drinks containing raghav root or syrup). Snacks and meals that are protein-dominant, salty, low-fat, bland, and/or dry ( eg, nuts, pretzels, crackers, cereal, toast) are often tolerated well. Fluids should be consumed at least 30 minutes before or after solid food to minimize the effect of a full stomach. Fluids are better tolerated if cold, clear, and carbonated or sour (eg, raghav maria elena, lemonade, popsicles) and taken in small amounts. Follow up with your primary care provider within 3 days if symptoms persist. You should establish with an presentation team member as soon as possible. Seek immediate medical attention in the emergency room if you develop fever greater than 100.5 F, severe abdominal pain, persistent vomiting, blood in your vomit or bowel movements, vaginal bleeding, or any worsening of symptoms. - Billing Disposition and Condition Condition: STABLE Disposition: Home
[2019-06-29] MEDS ORDERED: NS 0.9% 1000 ML** 1,000 ML IV ONE (15:40)
[2019-06-29] MEDS ORDERED: Metoclopramide IV* 5 MG/ML 2 ML VIAL IV SLOW PU ONE (15:43)
[2019-06-29 17:44] VITALS: BP 111/70
== END 2019-06-29 17:40 | disposition home or self-care (01) ==
LOC: UCEAST 14:38
DX: O21.9 Vomiting of pregnancy, unspecified (principal); O99.89 Other specified diseases and conditions complicating pregnancy, childbirth and the puerperium; J02.9 Acute pharyngitis, unspecified; R11.0 Nausea; Z91.09 Other allergy status, other than to drugs and biological substances
CPT/HCPCS: 81003; 84702; 87086; 96360; 99211; G0463; J2765

== ENCOUNTER 2019-07-15 08:47 | Emergency (ER) | payer MEDICAID, OTHER ==
[2019-07-15] MEDS ORDERED: NS 0.9% 1000 ML** 1,000 ML IV ONE (09:14)
[2019-07-15] MEDS ORDERED: PROCHLORPERAZINE INJ 5 MG/ML 2 ML VIAL IV ONE (09:16)
--- NOTE | 2019-07-15 09:18 | ED ---
- HPI Summary HPI Summary: Patient is a 39-year-old female who presents emergency department for nausea and vomiting. Patient notes she is 8 weeks gestation. She follows up local OB/ [facility] and has seen the month so far. Patient states she's been having intermittent nausea and vomiting throughout her . Patient states last 2 days she has not been able to keep any liquids down. She denies abdominal pain and vaginal bleeding. A0. Sxs are moderate in severity. No current modifying factors. - History of Current Complaint Chief Complaint: EDNauseaVomitDiarrh Stated Complaint: VOMITING PER PT Time Seen by Provider: 07/15/19 09:00 Hx Obtained From: Patient Pain Intensity: 5 - Assessment Hx Now: No SAB: 1 IEA: 0 Hx Hysterectomy: No - Additional Pertinent History Maternal Blood Type and Rh: O Positive - Allergies/Home Medications Allergies/Adverse Reactions: Allergies Allergy/AdvReac Type Severity Reaction Status Date / Time ENVIRONMENTAL/SEASONAL Allergy STUFFINESS, Uncoded 07/15/19 09:16 HAYFEVER SNEEZING Home Medications: Home Medications Mv-Mn/Iron/FA/Herbal/Digestive [ One Tablet] 1 each PO DAILY 07/15/19 [ History Confirmed 07/15/19] Prochlorperazine 10 mg TAB [Compazine 10 mg TAB] 10 mg PO Q6H PRN #12 tab [Rx] PMH/Surg Hx/FS Hx/Imm Hx Previously Healthy: Yes Endocrine/Hematology History: Reports: Hx Anemia Denies: Hx Diabetes, Hx Thyroid Disease Cardiovascular History: Denies: Hx Hypertension Respiratory History: Reports: Hx Asthma - rescue inhaler Denies: Hx Chronic Obstructive Pulmonary Disease (COPD) GI History: Denies: Hx Ulcer Sensory History: Denies: Hx Contacts or Glasses, Hx Hearing Aid Opthamlomology History: Denies: Hx Contacts or Glasses - Surgical History Surgery Procedure, Year, and Place: umbilical hernia repair 04/2013 Infectious Disease History: No Infectious Disease History: Denies: Hx Clostridium Difficile, Hx Hepatitis, Hx Human Immunodeficiency Virus (HIV), Hx of Known/Suspected MRSA, Hx Shingles, Hx Tuberculosis, Hx Known/ Suspected VRE, Hx Known/Suspected VRSA, History Other Infectious Disease, Traveled Outside the [place] in Last 30 Days - Family History Known Family History: Positive: Other, Non-Contributory Negative: Cardiac Disease, Hypertension, Diabetes Family History: pos: anaesthesia reaction - sister - Social History Occupation: Employed Full-time Lives: With Family Alcohol Use: None Substance Use Type: Reports: None Smoking Status (MU): Never Smoked Tobacco Review of Systems Constitutional: Negative Cardiovascular: Negative Respiratory: Negative Positive: Vomiting, Nausea. Negative: Diarrhea Genitourinary: Negative Neurological/Mental Status: Negative All Other Systems Reviewed And Are Negative: Yes Physical Exam - Physical Exam Triage Information Reviewed: Yes Vital Signs Reviewed: Yes Appearance: Positive: Well-Appearing - Pt. lying on bed in NAD. Family present. Skin: Positive: Warm, Dry Head/Face: Positive: Normal Head/Face Inspection Eyes: Positive: Normal, EOMI Neck: Positive: Supple Respiratory/Lung Sounds: Positive: Clear to Auscultation, Breath Sounds Present Cardiovascular: Positive: Normal, RRR Abdomen Description: Positive: Other: - appearing. Abd. is soft and nontender throughout. Neurological: Positive: Normal, CN Intact II-III Psychiatric: Positive: Affect/Mood Appropriate - Vaginal Assessment Presentation Comment: cephalic Procedures - Sedation Patient Received Moderate/Deep Sedation with Procedure: No Diagnostics - Vital Signs Vital Signs Temp Pulse Resp BP Pulse Ox 07/15/19 09:09 79 97 07/15/19 08:49 98 F 82 16 112/71 99 - Laboratory Result Diagrams: 07/15/19 09:44 07/15/19 09:44 Lab Statement: Any lab studies that have been ordered have been reviewed, and results considered in the medical decision making process. Course/Dx - Course Course Of Treatment: Pt. with N/V in early . No abd. pain on exam. Pt. started on iv fluids and compazine. Labs show mild anemia. U/A +2 ketones. On re-exam pt. feeling much and tolerating PO fluids. Would like to be dc. Small rx for compazine given. To call OB tomorrow for close f.u. Will return to ER if sxs change or worsen. - Differential Diagnosis/HQI/PQRI: Hyperemesis Gravidarum - Diagnoses Provider Diagnoses: Vomiting of , Nausea & vomiting Discharge ED - Sign-Out/Discharge Documenting (check all that apply): Patient Departure - Discharge Plan Condition: Improved Disposition: HOME Prescriptions: Prochlorperazine 10 mg TAB [Compazine 10 mg TAB] 10 mg PO Q6H PRN #12 tab PRN Reason: Nausea Patient Education Materials: Nausea and Vomiting in (ED), Hyperemesis Gravidarum (ED) Forms: *Work Release Referrals: Kristen John DO [Primary Care Provider] - Additional Instructions: Please call your OB today for a close follow up appointment Nausea medication as directed Increase fluids Eat small frequent meals Return to ER if symptoms change or worsen - Billing Disposition and Condition Condition: IMPROVED Disposition: Home - Attestation Statements Provider Attestation: I was available for consultation for this patient. I did not evaluate the patient or participate in any medical decision making or disposition decisions unless I am specifically named in the chart as having consulted on the patient. If I have consulted on the patient, please see my own ED note on the patient encounter. Mark Miller MD
[2019-07-15 09:59] LABS: ABS Lymphocytes 0.9 10^3/ul (1.0-4.8); ABS Monocytes 0.7 10^3/ul (0-0.8); ABS Neutrophils 2.7 10^3/ul (1.5-7.7); Eosinophil % 0.9 %; Hematocrit 30 % (35-47); Hemoglobin 10.1 g/dL (12.0-16.0); Lymphocyte % 19.5 %; Mean Corpuscular HGB Conc 34 g/dL (31-36); Mean Corpuscular Hemoglobin 27 pg (27-31); Mean Corpuscular Volume 80 fL (80-97); Mean Platelet Volume 8.6 fL (7.4-10.4); Nucleated Red Blood Cells % 0.2; Platelet Count 181 10^3/uL (150-450); Red Cell Distribution Width 15 % (10-15); White Blood Count 4.4 10^3/uL (3.5-10.8)
[2019-07-15 10:24] LABS: Albumin 3.9 g/dL (3.2-5.2); Albumin/Globulin Ratio 1.3 (1-3); BUN/Creatinine Ratio 32.2 (8-20); Calcium 8.4 mg/dL (8.6-10.3); EGFR African American 138.8 (>60); EGFR Non-African American 114.7 (>60); Globulin 3.1 g/dL (2-4); Magnesium 2.1 mg/dL (1.9-2.7); Potassium 3.6 mmol/L (3.5-5.0); Total Bilirubin 0.6 mg/dL (0.2-1.0)
[2019-07-15 11:27] LABS: Urine Appearance Cloudy; Urine Bilirubin Negative (Negative); Urine Blood Negative (Negative); Urine Color Yellow; Urine Glucose Negative (Negative); Urine Ketones 2+ (Negative); Urine Nitrite Negative (Negative); Urine Protein Negative (Negative); Urine Specific Gravity 1.024 (1.010-1.030); Urine Urobilinogen Negative (Negative)
[2019-07-15 11:31] LABS: Urine Bacteria Absent (Absent); Urine Red Blood Cell 2+(6-10/hpf) (Absent); Urine Squamous Epithelial Cell Present (Absent); Urine White Blood Cell Trace(0-5/hpf) (Absent)
[2019-07-15 12:28] VITALS: BP 109/70
== END 2019-07-15 12:28 | disposition home or self-care (01) ==
LOC: ED 08:47
DX: O21.0 Mild hyperemesis gravidarum (principal); Z3A.08 8 weeks gestation of pregnancy; J45.909 Unspecified asthma, uncomplicated
CPT/HCPCS: 36415; 80053; 81003; 81015; 83690; 83735; 85025; 87086; 96361; 96374; 99283; J0780

== ENCOUNTER 2019-08-08 09:18 | Emergency (ER) | payer MEDICAID, OTHER ==
[2019-08-08 09:39] VITALS: BP 109/65
[2019-08-08] MEDS ORDERED: NS 0.9% 1000 ML** 1,000 ML IV ONE (09:41)
[2019-08-08] MEDS ORDERED: Metoclopramide IV* 5 MG/ML 2 ML VIAL IV ONE (09:42)
--- NOTE | 2019-08-08 09:50 | UC ---
Nausea/Vomiting/Diarrhea HPI - HPI Summary HPI Summary: Ms. Hines has been suffering from nausea and vomiting throughout her . She is approximately 13 weeks at this time. She had nausea and vomiting during her first 2 pregnancies but it is worse with this one. She was given Reglan and fluids in the emergency department on July 14 and discharge prescription for Compazine but she states that she does not laboratory mix her feel. Her EMG TECHNICIAN doctor has talked to her about raghav but she does not like the taste. She has not been prescribed doxylamine and B6. She has not eaten today but has kept sips of water down. - History of Current Complaint Chief Complaint: UCGI Stated Complaint: VOMITING Time Seen by Provider: 08/08/19 09:27 Hx Obtained From: Patient Hx Last Menstrual Period: 05/16/19 Onset/Duration: Gradual Onset, Lasting Weeks Timing: Constant Severity Initially: Moderate Severity Currently: Moderate Pain Intensity: 6 Character: Not Applicable Aggravating Factor(s): Food Alleviating Factor(s): Other: - ED treatment Nausea/Vomiting Presence: Nauseated, Vomiting Vomiting Frequency: Every 1-2 hours Nausea/Vomiting Duration: > 7 days Vomiting Characteristics: Retching Diarrhea Presence: No - Allergies/Home Medications Allergies/Adverse Reactions: Allergies Allergy/AdvReac Type Severity Reaction Status Date / Time ENVIRONMENTAL/SEASONAL Allergy STUFFINESS, Uncoded 08/08/19 09:24 HAYFEVER SNEEZING Home Medications: Home Medications Mv-Mn/Iron/FA/Herbal/Digestive [ One Tablet] 1 each PO DAILY 07/15/19 [ History Confirmed 08/08/19] Prochlorperazine 10 mg TAB [Compazine 10 mg TAB] 10 mg PO Q6H PRN #12 tab [Rx Confirmed 08/08/19] Doxylamine Succinate/Vit B6 [Doxylamine-Pyridoxine 10-10 mg] 2 each PO BEDTIME # 30 tablet. 08/08/19 [Rx] Nitrofurantoin Monohyd/M-Cryst [Macrobid 100 mg Capsule] 100 mg PO BID #10 cap 08/08/19 [Rx] PMH/Surg Hx/FS Hx/Imm Hx Previously Healthy: Yes - Surgical History Surgical History: Yes Surgery Procedure, Year, and Place: umbilical hernia repair 04/2013 - Family History Known Family History: Positive: Other, Non-Contributory Negative: Cardiac Disease, Hypertension, Diabetes Family History: pos: anaesthesia reaction - sister - Social History Alcohol Use: None Substance Use Type: None Smoking Status (MU): Never Smoked Tobacco - Immunization History Most Recent Influenza Vaccination: 03/31/15 Most Recent Tetanus Shot: 03/31/15 Most Recent Pneumonia Vaccination: none Review of Systems All Other Systems Reviewed And Are Negative: Yes Constitutional: Positive: Negative Skin: Positive: Negative ENT: Positive: Negative Respiratory: Positive: Negative Gastrointestinal: Positive: Vomiting, Nausea. Negative: Abdominal Pain, Diarrhea Genitourinary: Positive: Negative Neurological/Mental Status: Positive: Negative Is Patient Immunocompromised?: No Physical Exam - Summary Physical Exam Summary: She is nontoxic in appearance with stable vitals. Triage Information Reviewed: Yes Appearance: Well-Appearing, Well-Nourished Vital Signs: Initial Vital Signs Temp 99.7 F 08/08/19 09:38 Pulse 89 08/08/19 09:38 Resp 18 08/08/19 09:38 BP 109/65 08/08/19 09:38 Pulse Ox 100 08/08/19 09:38 Vital Signs Reviewed: Yes ENT Exam: Normal Neck exam: Normal Musculoskeletal Exam: Normal Neurological Exam: Normal Skin Exam: Normal Naus/Vom/Diarrhea Course/Dx - Course Course Of Treatment: She improved significantly here with fluids and Reglan as she did in the emergency department on the third. On going to give her a prescription for doxylamine with B6. She has an appointment on August [address] Diamond. Her urine was equivocal with 1+ leukocyte esterase and protein. She is too early for preeclampsia or hellp and I recommend follow-up. For her urine I'm going to give her Macrodantin. - Differential Dx/Diagnosis Provider Diagnosis: Hyperemesis Discharge ED - Sign-Out/Discharge Documenting (check all that apply): Patient Departure All imaging exams completed and their final reports reviewed: No Studies - Discharge Plan Condition: Stable Disposition: HOME Prescriptions: Doxylamine Succinate/Vit B6 [Doxylamine-Pyridoxine 10-10 mg] 2 each PO BEDTIME # 30 tablet. Patient Education Materials: Urinary Tract Infection in Women (ED), Hyperemesis Gravidarum (ED) Referrals: Kristen John DO [Primary Care Provider] - - Billing Disposition and Condition Condition: STABLE Disposition: Home
== END 2019-08-08 11:36 | disposition home or self-care (01) ==
LOC: UCEAST 09:18
DX: O21.0 Mild hyperemesis gravidarum (principal); Z3A.13 13 weeks gestation of pregnancy
CPT/HCPCS: 81003; 87086; 96360; 96374; 99212; G0463; J2765

== ENCOUNTER 2019-08-10 15:03 | Emergency (ER) | payer MEDICAID ==
--- NOTE | 2019-08-10 15:47 | UC ---
Complaint Female HPI - HPI Summary HPI Summary: 39yo female currently 13 weeks presenting with complaint of "green urine" that she noticed this morning. A0. Upon further questioning, patient states that "it looks like the color of mountain dew." Patient states she was here 2 days ago for hyperemesis which happens with each . States she was also given macrobid for possible UTI which she is still taking. Urine came back without growth. Patient given prescription for doxylamine and B6 and states she has been feeling better the past couple days. Able to eat and stay hydrated. Notes mild dysuria that has improved over the last 2 days since taking macrobid. Denies hematuria. Denies abnormal discharge and odor. Denies abdominal pain. Notes she has an abdominal hernia "for a while now" that her doctors know about." Denies tenderness from the hernia. Denies change in BMs. Denies fever and chills. Denies concern for STIs, stating she was just test and got back the results last week from her OBGYN. Patient adds that she would like to know what she can take for stool softener when she starts taking her iron supplement as advised by her obgyn - History Of Current Complaint Stated Complaint: PERSONAL Hx Obtained From: Patient Hx Last Menstrual Period: 05/16/19 - Allergies/Home Medications Allergies/Adverse Reactions: Allergies Allergy/AdvReac Type Severity Reaction Status Date / Time ENVIRONMENTAL/SEASONAL Allergy STUFFINESS, Uncoded 08/10/19 15:39 HAYFEVER SNEEZING Home Medications: Home Medications Mv-Mn/Iron/FA/Herbal/Digestive [ One Tablet] 2 each PO DAILY 07/15/19 [ History Confirmed 08/10/19] Doxylamine Succinate/Vit B6 [Doxylamine-Pyridoxine 10-10 mg] 2 each PO BEDTIME # 30 tablet. 08/08/19 [Rx Confirmed 08/10/19] Nitrofurantoin Monohyd/M-Cryst [Macrobid 100 mg Capsule] 100 mg PO BID #10 cap 08/08/19 [Rx Confirmed 08/10/19] Cephalexin CAP* [Keflex CAP*] 500 mg PO QID #28 cap 08/10/19 [Rx] Iron 1 tab PO DAILY 08/10/19 [History Confirmed 08/10/19] PMH/Surg Hx/FS Hx/Imm Hx - Surgical History Surgical History: Yes Surgery Procedure, Year, and Place: umbilical hernia repair 04/2013 - Family History Known Family History: Positive: Other, Non-Contributory Negative: Cardiac Disease, Hypertension, Diabetes Family History: pos: anaesthesia reaction - sister - Social History Alcohol Use: None Substance Use Type: None Smoking Status (MU): Never Smoked Tobacco - Immunization History Most Recent Influenza Vaccination: 03/31/15 Most Recent Tetanus Shot: 03/31/15 Most Recent Pneumonia Vaccination: none Review of Systems All Other Systems Reviewed And Are Negative: Yes Constitutional: Positive: Negative Respiratory: Positive: Negative Cardiovascular: Positive: Negative Gastrointestinal: Positive: Vomiting, Nausea. Negative: Abdominal Pain Genitourinary: Positive: Dysuria. Negative: Hematuria, Frequency, Urgency, Vaginal/Penile Burning, Vaginal/Penile Itching, Vaginal/Penile Discharge Neurovascular: Positive: Negative Musculoskeletal: Positive: Negative Neurological/Mental Status: Positive: Negative Physical Exam Triage Information Reviewed: Yes Appearance: No Pain Distress, Well-Nourished, Other: - fatigued Vital Signs: Vital Signs (72 hours) 08/10/19 15:36 Temperature 97.5 F Pulse Rate 83 Respiratory 18 Rate Blood Pressure 99/63 (mmHg) O2 Sat by Pulse 100 Oximetry Eyes: Positive: Conjunctiva Clear ENT: Positive: Hearing grossly normal Neck: Positive: Supple Respiratory Exam: Normal Respiratory: Positive: Lungs clear, Normal breath sounds, No respiratory distress, No accessory muscle use Cardiovascular Exam: Normal Cardiovascular: Positive: RRR, No Murmur Abdomen Description: Positive: Nontender, No Organomegaly, Soft, Hernia @ - epigastric, nontender. Negative: CVA Tenderness (R), CVA Tenderness (L) Bowel Sounds: Positive: Present Pelvic Exam: Positive: External Exam Normal, Speculum Exam Normal, Bimanual Exam Normal, Discharge - thin, white. Negative: Active Bleeding, Blood, Cervicitis, Lesions, Tender w/ Cervical Motion Neurological: Positive: Alert Psychological: Positive: Age Appropriate Behavior Skin Exam: Normal Complaint Female Dx - Course Course Of Treatment: UA revealed 3+ leuks, trace blood, and trace protein from clean catch. Patient also consented to pelvic exam with INDERJIT Sow at bedside. She received testing for yeast, BV, trichomonas, gonorrhea, and chlamydia. I changed the patient's treatment of possible UTI from macrobid to Keflex, despite negative culture from two days ago. I informed her that she would be notified with any results that are abnormal and require a change in treatment. I educated on s/s of worsening UTI and instructed to go to ED if any new or worsening symptoms occur. Instructed to follow up with pcp or obgyn if symptoms persist. Patient voiced understanding and agreed with treatment plan. Discussed this patient with Dr. Urbina who also agreed with treatment plan. - Differential Dx/Diagnosis Differential Diagnosis/HQI/PQRI: Sexually Transmitted Disease, Urinary Tract Infection Provider Diagnosis: UTI (urinary tract infection) Discharge ED - Sign-Out/Discharge Documenting (check all that apply): Patient Departure All imaging exams completed and their final reports reviewed: No Studies - Discharge Plan Condition: Stable Disposition: HOME Prescriptions: Cephalexin CAP* [Keflex CAP*] 500 mg PO QID #28 cap Patient Education Materials: Dysuria (ED), Urinary Tract Infection in (ED) Forms: *Work Release Referrals: Kristen John DO [Primary Care Provider] - If Needed Salvador Diamond MD [Medical Doctor] - If Needed Additional Instructions: Discontinue macrobid. Take keflex as prescribed instead. Your cultures have been sent and you will be notified with any abnormal results. Continue to stay hydrated. Follow up with your primary care provider or your OBGYN if symptoms are not improving within 3-5 days. Go to the emergency room if you experience any new or worsening symptoms that we discussed today. You may take colace or miralax if you become constipated. - Billing Disposition and Condition Condition: STABLE Disposition: Home
[2019-08-10 15:50] VITALS: BP 99/63
[2019-08-10] MEDS ORDERED: Cephalexin CAP* 500 MG PO ONE (16:48)
--- NOTE | 2019-08-12 18:44 | UC ---
- Progress Note Progress Note: BV positive. Urine culture no growth. Advise to continue keflex for UTI symptoms as she was already on macrobid and had symptoms of UTI in clinic. For BV rx sent for metronidazole topical as she is . Please tell her to let her OBGYN know of her results Course/Dx - Diagnoses Provider Diagnoses: UTI (urinary tract infection) Discharge ED - Sign-Out/Discharge Documenting (check all that apply): Post-Discharge Follow Up All imaging exams completed and their final reports reviewed: No Studies - Discharge Plan Condition: Stable Disposition: HOME Prescriptions: Cephalexin CAP* [Keflex CAP*] 500 mg PO QID #28 cap metroNIDAZOLE [Metrogel] 0.75 % TP DAILY #1 gel.w.pump Patient Education Materials: Dysuria (ED), Urinary Tract Infection in (ED) Forms: *Work Release Referrals: Kristen John DO [Primary Care Provider] - If Needed Salvador Diamond MD [Medical Doctor] - If Needed Additional Instructions: Discontinue macrobid. Take keflex as prescribed instead. Your cultures have been sent and you will be notified with any abnormal results. Continue to stay hydrated. Follow up with your primary care provider or your OBGYN if symptoms are not improving within 3-5 days. Go to the emergency room if you experience any new or worsening symptoms that we discussed today. You may take colace or miralax if you become constipated. - Billing Disposition and Condition Condition: STABLE Disposition: Home
== END 2019-08-10 17:05 | disposition home or self-care (01) ==
LOC: UCEAST 15:03
DX: O23.41 Unspecified infection of urinary tract in pregnancy, first trimester (principal); R11.2 Nausea with vomiting, unspecified; R53.83 Other fatigue; Z3A.13 13 weeks gestation of pregnancy
CPT/HCPCS: 81003; 87086; 87480; 87491; 87510; 87591; 87661; 99213; A9270-GY; G0463

== ENCOUNTER 2020-02-20 18:05 | Inpatient (IN) ==
[2020-02-20] MEDS ORDERED: Lactated Ringers 1000 ml BAG 1,000 ML IV ONE (18:35)
[2020-02-20] MEDS ORDERED: Penicillin G Potassium IV 5,000,000 UNITS in NS 0.9% 100 ml BAG 100 ML IVPB ONE (18:35)
[2020-02-20] MEDS ORDERED: Lactated Ringers 1000 ml BAG 1,000 ML IV SCH (19:00)
[2020-02-20 19:09] LABS: ABS Lymphocytes 1.2 10^3/ul (1.0-4.8); ABS Monocytes 0.9 10^3/ul (0-0.8); Eosinophil % 0.5 %; Hematocrit 32 % (35-47); Hemoglobin 11.1 g/dL (12.0-16.0); Lymphocyte % 17.1 %; Mean Corpuscular HGB Conc 34 g/dL (31-36); Mean Corpuscular Hemoglobin 28 pg (27-31); Mean Corpuscular Volume 82 fL (80-97); Mean Platelet Volume 9.5 fL (7.4-10.4); Nucleated Red Blood Cells % 0.1; Platelet Count 161 10^3/uL (150-450); Red Blood Count 3.94 10^6 /uL (3.70-4.87); Red Cell Distribution Width 17 % (10-15); White Blood Count 7.2 10^3/uL (3.5-10.8)
[2020-02-20 20:39] LABS: Urine Benzodiazepine Screen None Detected (None Detect); Urine Cannabinoids Screen None Detected (None Detect); Urine Opiates Screen None Detected (None Detect)
[2020-02-20] MEDS ORDERED: OBEPIDURAL 250 ML EPIDURAL ONE (21:38)
[2020-02-20] MEDS ORDERED: Phenylephrine 40 mcg/mL 10mL (400mcg) SYRINGE IV PUSH PRN (22:44)
[2020-02-20] MEDS ORDERED: Sodium Citrate/Citric Acid LIQ 15 ML UDC PO PRN (22:44)
[2020-02-20] MEDS ORDERED: OBEPIDURAL 250 ML EPIDURAL SCH (23:00)
[2020-02-20] MEDS: Penicillin G Potassium IV 3,000,000 UNITS in NS 0.9% 100 ml BAG 100 ML IVPB SCH (23:30)
[2020-02-21] MEDS: Lactated Ringers 1000 ml BAG 1,000 ML IV SCH ×2 (01:00→03:21)
[2020-02-21] MEDS ORDERED: Oxytocin in LR 20 UNITS/1,000 ML BAG IVPB ONE (01:25)
[2020-02-21] MEDS: Penicillin G Potassium IV 3,000,000 UNITS in NS 0.9% 100 ml BAG 100 ML IVPB SCH (03:27)
[2020-02-21] MEDS ORDERED: Glycerin ADULT 2.4 gm SUPP PR PRN (05:26)
[2020-02-21] MEDS ORDERED: Lactated Ringers 1000 ml BAG 1,000 ML IV SCH (06:00)
[2020-02-21] MEDS: Witch Hazel PAD JAR TOPICAL PRN ×2 (07:29→19:55)
[2020-02-21] MEDS: Dibucaine 1% OINT 28.35 GM TUBE PR PRN ×2 (07:30→19:55)
[2020-02-22 07:13] LABS: ABS Eosinophils 0.1 10^3/ul (0-0.6); ABS Lymphocytes 1.6 10^3/ul (1.0-4.8); ABS Monocytes 1.1 10^3/ul (0-0.8); ABS Neutrophils 8.8 10^3/ul (1.5-7.7); Hematocrit 27 % (35-47); Hemoglobin 9.3 g/dL (12.0-16.0); Mean Corpuscular HGB Conc 34 g/dL (31-36); Mean Corpuscular Hemoglobin 29 pg (27-31); Mean Corpuscular Volume 84 fL (80-97); Nucleated Red Blood Cells % 0.1; Platelet Count 122 10^3/uL (150-450); Red Blood Count 3.22 10^6 /uL (3.70-4.87); Red Cell Distribution Width 17 % (10-15); White Blood Count 11.7 10^3/uL (3.5-10.8)
[2020-02-22] MEDS ORDERED: Influenza VAC *QUAD* 2020-21* 0.5 ML SYRINGE IM ONE (09:00)
[2020-02-22] MEDS: Dibucaine 1% OINT 28.35 GM TUBE PR PRN (20:58)
[2020-02-22] MEDS: Witch Hazel PAD JAR TOPICAL PRN (20:58)
[2020-02-23 07:43] VITALS: BP 117/67
[2020-02-23] MEDS ORDERED: Varicella Virus Vaccine Live 0.5 ML VIAL SUBCUT ONE (11:00)
== END 2020-02-23 12:15 | disposition home or self-care (01) | DRG 560 ==
LOC: MCHOBOUT 18:05 → MCHOB 18:30
PROVIDERS: ADMIT Obstetrics & Gynecology; ATTEND Obstetrics & Gynecology